=== PATIENT | female | born 1995 | race Native Hawaiian/Other Pacific Islander ===

== ENCOUNTER 2020-10-26 12:23 | Day surgery (SDC) | payer OTHER ==
[~2020-10-26] VITALS: Ht 165.1 cm; Wt 67.3 kg
[~2020-10-26 12:23] MED LIST: LIDOCAINE 1% MDV 20ML VIAL SQ PRN; LR 1,000 ML IV ONE
[2020-10-26 13:03] LABS: HEMATOCRIT 40.5 % (36.0-47.0); HEMOGLOBIN 13.6 g/dl (12.0-15.5); MEAN CORPUSCULAR HEMOGLOBIN 31.9 pg (27.0-33.0); MEAN CORPUSCULAR HGB CONC 33.6 g/dl (32.0-36.5); MEAN CORPUSCULAR VOLUME 94.8 fl (80.0-96.0); PLATELET COUNT, AUTOMATED 211 10^3/uL (150-450); RED BLOOD COUNT 4.27 10^6/uL (4.00-5.40); WHITE BLOOD COUNT 5.5 10^3/uL (4.0-10.0)
[2020-10-26 13:29] LABS: HCG, SERUM QUALITATIVE NEGATIVE (NEGATIVE)
[2020-10-26] MEDS ORDERED: IODINE STRONG SOLN 15 ML BTL As Ordered ONE (17:05)
[2020-10-26] MEDS ORDERED: LIDOCAINE W/EPINEPHRINE 1% 20ML VIAL As Ordered ONE (17:05)
[2020-10-26] MEDS ORDERED: LIDOCAINE 2% 100MG/5ML SDV (FOR ANES.) As Ordered ONE (17:07)
[2020-10-26] MEDS ORDERED: MIDAZOLAM INJ 2MG/2ML VIAL (J2250 PER 1MG) As Ordered ONE (17:07)
[2020-10-26] MEDS ORDERED: propofoL 200 MG/20 ML VIAL As Ordered ONE (17:07)
[2020-10-26] MEDS ORDERED: fentaNYL 100 MCG/2 ML INJECTION (J3010) As Ordered ONE (17:07)
[2020-10-26] MEDS ORDERED: KETOROLAC 60MG 2ML VIAL As Ordered ONE (17:35)
[2020-10-26 19:40] VITALS: BP 110/72
--- NOTE | 2020-10-27 09:43 | RO ---
OPERATIVE NOTE DATE OF OPERATION: 10/26/2020 PREOPERATIVE DIAGNOSIS: Cervical dysplasia. POSTOPERATIVE DIAGNOSIS: Cervical dysplasia. PROCEDURE: Loop electrosurgical excision procedure. SURGEON: John Will D.O. IRONWORKER: None. IV FLUIDS: 900 mL LR. ANESTHESIA: IV sedation. URINE OUTPUT: 300 mL via Cantu catheter. ESTIMATED BLOOD LOSS: 2 mL. ANTIBIOTICS: None indicated. COMPLICATIONS: None. DESCRIPTION OF PROCEDURE: The risks, benefits, indications, and alternatives of the procedure were reviewed with the patient and informed consent was obtained. The patient was taken to the operating room where IV sedation was obtained without difficulty. The patient was then placed in the lithotomy position using gel-padded Chapin stirrups. The patient was then prepped and draped in the usual sterile fashion. The bladder was drained using an in-and-out catheter. A surgical time-out was then performed where the patient's identity and planned procedure were verified with the operating team. A sterile Graves speculum was then placed into the vagina and the cervix was visualized. A paracervical block was then performed using approximately 10 mL of Lidocaine with epinephrine. Lugol's solution was then copiously applied to the cervix which highlighted a lesion from the 6 to 12 o'clock position of the cervix. The LEEP device was then set to 60/60 blend and activated. The loop electrocautery wire was passed across the external cervical os with a single pass. Production of an adequate tissue sample was collected and sent to pathology for review. Superficial electrocoagulation of the cervical stroma was then performed with excellent hemostasis achieved. Monsel solution was then applied to the cervix. The cervix remained hemostatic. All instruments were then removed from the patient's vagina. At the completion of the case the sponge, instrument, and needle counts were correct x2. The patient tolerated the procedure well and was taken to the recovery room in stable condition. AUNG
== END 2020-10-26 19:40 | disposition home or self-care (01) ==
LOC: M SDC 12:23
PROVIDERS: ATTEND Obstetrics & Gynecology
DX: D06.9 Carcinoma in situ of cervix, unspecified (principal); F17.218 Nicotine dependence, cigarettes, with other nicotine-induced disorders
CPT/HCPCS: 36415; 57522; 84703; 85027; 88307; J1885; J2250; J3010

== ENCOUNTER 2021-02-15 11:05 | Emergency (ER) | payer OTHER ==
[~2021-02-15] VITALS: Ht 165.1 cm; Wt 70.5 kg
[2021-02-15] MEDS ORDERED: CIPR-249 PO (13:33)
[2021-02-15 13:53] VITALS: BP 123/75
== END 2021-02-15 13:54 | disposition home or self-care (01) ==
LOC: M ED 11:05
DX: N39.0 Urinary tract infection, site not specified (principal); F17.200 Nicotine dependence, unspecified, uncomplicated

== ENCOUNTER 2021-02-28 12:37 | Emergency (ER) | payer OTHER ==
[~2021-02-28] VITALS: Ht 165.1 cm; Wt 69.1 kg
[2021-02-28 12:37] VITALS: BP 138/87
[~2021-02-28 12:37] MED LIST changes: +CIPR-249 PO; -LIDOCAINE 1% MDV 20ML VIAL SQ PRN; -LR 1,000 ML IV ONE
[2021-02-28] MEDS ORDERED: ACETAMINOPHEN TAB 650MG DOSE (2X325MG) PO ONE (14:45)
[2021-02-28] MEDS ORDERED: ONDANSETRON 4 MG ORAL DISINTEGRATING TAB PO ONE (14:45)
[2021-02-28 15:46] LABS: BASO % 0.4 % (0.0-1.0); EOS # 0.3 10^3/uL (0.0-0.5); EOS % 3.4 % (0.0-3.0); HEMATOCRIT 42.6 % (36.0-47.0); HEMOGLOBIN 14.3 g/dl (12.0-15.5); LYMPH # 2.6 10^3/uL (1.5-5.0); LYMPH % 27.5 % (24.0-44.0); MEAN CORPUSCULAR HEMOGLOBIN 32.7 pg (27.0-33.0); MEAN CORPUSCULAR HGB CONC 33.6 g/dl (32.0-36.5); MEAN CORPUSCULAR VOLUME 97.5 fl (80.0-96.0); MONO # 0.5 10^3/uL (0.0-0.8); MONO % 5.7 % (2.0-8.0); NEUTROPHILS # 5.8 10^3/uL (1.5-8.5); NEUTROPHILS % 62.7 % (36.0-66.0); PLATELET COUNT, AUTOMATED 238 10^3/uL (150-450); RED BLOOD COUNT 4.37 10^6/uL (4.00-5.40); WHITE BLOOD COUNT 9.3 10^3/uL (4.0-10.0)
[2021-02-28 16:14] LABS: ALBUMIN 3.8 GM/DL (3.2-5.2); BILIRUBIN,DIRECT 0.2 MG/DL (0.0-0.2); BILIRUBIN,TOTAL 0.5 MG/DL (0.2-1.0); TOTAL PROTEIN 7.4 GM/DL (6.4-8.2)
== END 2021-02-28 16:55 | disposition home or self-care (01) ==
LOC: M ED 12:37
DX: R10.9 Unspecified abdominal pain (principal); R11.2 Nausea with vomiting, unspecified; R19.7 Diarrhea, unspecified; Z20.822 Contact with and (suspected) exposure to COVID-19
CPT/HCPCS: 36415; 80047; 80076; 83690; 84702; 85025; 99282; Q0162; U0003

== ENCOUNTER 2021-04-12 08:41 | Day surgery (SDC) | payer OTHER ==
[~2021-04-12] VITALS: Ht 167.6 cm; Wt 71.8 kg
[~2021-04-12 08:41] MED LIST changes: +ACETAMINOPHEN *IV* 1,000 MG IV ONE; +LIDOCAINE 1% MDV 20ML VIAL SQ PRN; +LR 1,000 ML IV ONE; +OMEG10002 PO
[2021-04-12] MEDS ORDERED: dexameTHASONE 4 MG/ML 1ML VIAL (J1100 PER 1MG) As Ordered ONE (09:16)
[2021-04-12] MEDS ORDERED: KETOROLAC 60MG 2ML VIAL As Ordered ONE (09:16)
[2021-04-12] MEDS ORDERED: LIDOCAINE 2% 100MG/5ML SDV (FOR ANES.) As Ordered ONE (09:16)
[2021-04-12] MEDS ORDERED: MIDAZOLAM INJ 2MG/2ML VIAL (J2250 PER 1MG) As Ordered ONE (09:16)
[2021-04-12] MEDS ORDERED: fentaNYL 100 MCG/2 ML INJECTION (J3010) As Ordered ONE (09:16)
[2021-04-12] MEDS ORDERED: ONDANSETRON 4MG/2ML VIAL As Ordered ONE (09:16)
[2021-04-12] MEDS ORDERED: propofoL 200 MG/20 ML VIAL As Ordered ONE (09:16)
[2021-04-12 09:31] LABS: HEMATOCRIT 44.2 % (36.0-47.0); HEMOGLOBIN 15.2 g/dl (12.0-15.5); MEAN CORPUSCULAR HEMOGLOBIN 31.9 pg (27.0-33.0); MEAN CORPUSCULAR HGB CONC 34.4 g/dl (32.0-36.5); MEAN CORPUSCULAR VOLUME 92.7 fl (80.0-96.0); PLATELET COUNT, AUTOMATED 282 10^3/uL (150-450); RED BLOOD COUNT 4.77 10^6/uL (4.00-5.40); WHITE BLOOD COUNT 8.1 10^3/uL (4.0-10.0)
[2021-04-12] MEDS ORDERED: LIDOCAINE W/EPINEPHRINE 1% 20ML VIAL As Ordered ONE (09:48)
[2021-04-12 09:57] LABS: HCG, SERUM QUALITATIVE NEGATIVE (NEGATIVE)
[2021-04-12 10:08] LABS: ALBUMIN 3.8 GM/DL (3.2-5.2); ALT/SGPT 29 U/L (12-78); BILIRUBIN,TOTAL 0.4 MG/DL (0.2-1.0); BLOOD UREA NITROGEN 9 MG/DL (7-18); CALCIUM LEVEL 8.5 MG/DL (8.5-10.1); CARBON DIOXIDE LEVEL 24 MEQ/L (21-32); CHLORIDE LEVEL 110 MEQ/L (98-107); CREATININE FOR GFR 0.62 MG/DL (0.55-1.30); GLOMERULAR FILTRATION RATE > 60.0 (>60); GLUCOSE, FASTING 109 MG/DL (70-100); POTASSIUM SERUM 3.7 MEQ/L (3.5-5.1); SODIUM LEVEL 140 MEQ/L (136-145); TOTAL PROTEIN 7.9 GM/DL (6.4-8.2)
[2021-04-12] MEDS ORDERED: ACETAMINOPHEN 1000MG 100ML IV BTL (OFIRMEV) (J0131 PER 10MG) As Ordered ONE (10:17)
[2021-04-12] MEDS ORDERED: LR 1,000 ML IV SCH (11:25)
[2021-04-12] MEDS ORDERED: oxyCODONE 5MG TAB PO PRN (11:25)
[2021-04-12] MEDS ORDERED: ONDANSETRON 4MG/2ML VIAL IV PRN (11:25)
--- NOTE | 2021-04-12 11:29 | ROOPDOC ---
[facility] Report Of Operation Report of Operation DATE OF PROCEDURE: 04/12/21 PREPROCEDURE DIAGNOSES: YVONNE 3 POSTPROCEDURE DIAGNOSES: YVONNE 3 PROCEDURE PERFORMED: cervical conization SURGEON: Chad Nuno DO WHEEL FILLER: Mckenzie Pink MD ANESTHESIA: LMA ESTIMATED BLOOD LOSS: Approximately 40 mL. COMPLICATIONS: none REMARKS: none FINDINGS: cervix posterior edge was minimal in comparison to the anterior, acetowhite change was noted mostly on posterior transition zone, cervical cone obtained, additional sliver of margin obtained at 5 o clock. Surgical bed was hemostatic with the aid of surgifoam, monsels, and stay sutures. SPECIMENS REMOVED: cervical cone, 5 o clock margin PROCEDURE NOTE: The risks, benefits and alternatives of the procedure were discussed and written consent obtained. The patient was taken to the OR where LMA anesthesia was performed. She was positioned in low lithotomy with the yellow fins and her arms out. The urethra was cleansed with iodine and the bladder drained. A final time out was performed. A weighted speculum was placed and the lateral cervix was tagged with 0-vicryl stay sutures bilaterally. Acetic acid was applied to the cervix. Acetowhite change was noted mostly on posterior transition zone. Anterior lip of cervix larger than posterior lip which was minimal in size. Lidocine 1% with epinepherine was injected circumferentially around the cervix. Using an 11 blade the transitional zone was excised in a cone shaped fashion, the curved faust scissors were used to truncate the base. The specimen was tagged a 12 o clock. Additional sliver was taken at the 5 margin and sent for pathology. The surgical bed was cauterized, monsels applied, surgifoam placed, and the stay sutures tied together. The resulting surgical site was hemostatic. There were no complications. The sponge, lap, and needle counts were correct. The patient was transferred to recovery in stable condition. CHAD NUNO DO Apr 12, 2021 11:29
--- NOTE | 2021-04-12 11:30 | POST-OPPD ---
Postoperative Procedure Note Date Of Procedure: Apr 12, 2021 DATE OF PROCEDURE: 04/12/21 PREPROCEDURE DIAGNOSES: YVONNE 3 POSTPROCEDURE DIAGNOSES: YVONNE 3 PROCEDURE PERFORMED: cervical conization SURGEON: Chad Nuno DO SYSTEMS ARCHITECT: Mckenzie Pink MD ANESTHESIA: LMA ESTIMATED BLOOD LOSS: Approximately 40 mL. COMPLICATIONS: none REMARKS: none FINDINGS: cervix posterior edge was minimal in comparison to the anterior, acetowhite change was noted mostly on posterior transition zone, cervical cone obtained, additional sliver of margin obtained at 5 o clock. Surgical bed was hemostatic with the aid of surgifoam, monsels, and stay sutures. SPECIMENS REMOVED: cervical cone, 5 o clock margin CHAD NUNO DO Apr 12, 2021 11:30
[2021-04-12 13:13] VITALS: BP 147/83
[2021-04-12] MEDS ORDERED: IBUPROFEN 800 MG TAB PO SCH (14:00)
== END 2021-04-12 13:15 | disposition home or self-care (01) ==
LOC: M SDC 08:41
PROVIDERS: ATTEND Obstetrics & Gynecology
DX: D06.9 Carcinoma in situ of cervix, unspecified (principal); R87.618 Other abnormal cytological findings on specimens from cervix uteri; K21.9 Gastro-esophageal reflux disease without esophagitis; Z79.899 Other long term (current) drug therapy; F17.218 Nicotine dependence, cigarettes, with other nicotine-induced disorders
CPT/HCPCS: 36415; 57520; 80053; 84703; 85027; 86850; 86900; 86901; 88307; J0131; J1100; J1885; J2250; J2405; J3010